=== PATIENT | male | born 1975 | race Caucasian/White ===

== ENCOUNTER 2022-11-29 10:05 | Outpatient (OUT) | payer OTHER, MEDICAID, SELFPAY ==
[2022-11-29 10:39] LABS: Basophils Percent Auto 0.5 % (0.2-2.0); Eosinophils Absolute Auto 0.4 10^3/uL (0.0-0.7); Eosinophils Percent Auto 4.8 % (0.9-7.0); Hematocrit 43.4 % (42.0-54.0); Hemoglobin 14.9 g/dL (14.0-18.0); Immature Granulocytes Abs Auto 0.03 10^3/uL (0.00-0.03); Immature Granulocytes Pct Auto 0.4 % (0.0-0.5); Lymphocytes Absolute Auto 2.3 10^3/uL (1.2-3.8); Lymphocytes Percent Auto 31.6 % (20.5-60.0); Mean Corpuscular HGB Conc 34.3 g/dL (29.9-35.2); Mean Corpuscular Volume 93.3 fL (80.0-94.0); Mean Platelet Volume 9.7 fL (9.5-13.5); Monocytes Absolute Auto 0.5 10^3/uL (0.3-0.8); Monocytes Percent Auto 7.3 % (1.7-12.0); Neutrophils Percent Auto 55.4 % (43.0-75.0); Platelet Count 184 10^3/uL (150-450); Red Blood Count 4.65 10^6/uL (4.70-6.10); Red Cell Distribution Width 12.2 % (11.0-15.0); White Blood Count 7.3 10^3/uL (4.0-11.0)
[2022-11-29 10:43] LABS: Estimated Average Glucose 100 mg/dL; Glycohemoglobin A1C 5.1 % (4.5-6.2)
[2022-11-29 10:49] LABS: Alanine Aminotransferase 43 U/L (16-63); Albumin Globulin Ratio 0.9; Albumin Level 3.3 g/dL (3.4-5.0); Alkaline Phosphatase 63 U/L (46-116); Aspartate Amino Transferase 30 U/L (15-37); Bilirubin Direct 0.1 mg/dL (0.0-0.2); Bilirubin Total 0.3 mg/dL (0.2-1.0); Globulin 3.7 g/dL
[2022-11-30 16:34] LABS: Thyroid Stimulating Hormone 2.369 uIU/mL (0.358-3.740)
[2022-11-30 16:38] LABS: Prostate Specific Antigen Scrn 0.41 ng/mL (<=4.00)
== END 2022-11-29 10:06 ==
LOC: LAB 10:09
PROVIDERS: PCP Family Medicine; Visit Provider Family Medicine
DX: Z00.00 Encounter for general adult medical examination without abnormal findings (principal); Z12.5 Encounter for screening for malignant neoplasm of prostate; E55.9 Vitamin D deficiency, unspecified
CPT/HCPCS: 36415; 80076; 82306; 83036; 84443; 85025; G0103

== ENCOUNTER 2024-07-06 07:18 | Outpatient (OUT) | payer OTHER, SELFPAY ==
[2024-07-06 09:23] LABS: Basophils Percent Auto 0.6 % (0.2-2.0); Eosinophils Absolute Auto 0.3 10^3/uL (0.0-0.7); Hematocrit 44.5 % (42.0-54.0); Immature Granulocytes Abs Auto 0.03 10^3/uL (0.00-0.03); Immature Granulocytes Pct Auto 0.4 % (0.0-0.5); Lymphocytes Absolute Auto 1.9 10^3/uL (1.2-3.8); Lymphocytes Percent Auto 28.1 % (20.5-60.0); Mean Corpuscular HGB Conc 33.7 g/dL (29.9-35.2); Mean Corpuscular Hemoglobin 32.2 pg (25.9-34.0); Mean Corpuscular Volume 95.5 fL (80.0-94.0); Mean Platelet Volume 9.8 fL (9.5-13.5); Monocytes Absolute Auto 0.6 10^3/uL (0.3-0.8); Monocytes Percent Auto 9.3 % (1.7-12.0); Neutrophils Absolute Auto 3.8 10^3/uL (1.4-6.5); Neutrophils Percent Auto 56.6 % (43.0-75.0); Platelet Count 206 10^3/uL (150-450); Red Blood Count 4.66 10^6/uL (4.70-6.10); Red Cell Distribution Width 11.9 % (11.0-15.0); White Blood Count 6.8 10^3/uL (4.0-11.0)
[2024-07-06 09:54] LABS: Estimated Average Glucose 100 mg/dL; Glycohemoglobin A1C 5.1 % (4.5-6.2)
[2024-07-06 10:13] LABS: Alanine Aminotransferase 35 U/L (16-63); Albumin Level 3.4 g/dL (3.4-5.0); Alkaline Phosphatase 60 U/L (46-116); Aspartate Amino Transferase 24 U/L (15-37); BUN Creatinine Ratio 17.9; Bilirubin Direct 0.1 mg/dL (0.0-0.2); Bilirubin Total 0.4 mg/dL (0.2-1.0); Calcium 8.3 mg/dL (8.5-10.1); Carbon Dioxide 27.1 mmol/L (21.0-32.0); Chloride 106 mmol/L (98-107); Chol HDL Ratio 3.1; Estimated GFR (African America >60 (>=60 mL/min/1.73m^2); Estimated GFR (Non-African Ame >60 (>=60 mL/min/1.73m^2); Globulin 3.5 g/dL; Glucose 103 mg/dL (74-106); HDL Cholesterol 45 mg/dL (40-60); Potassium 4.1 mmol/L (3.5-5.1); Sodium 143 mmol/L (136-145); Thyroid Stimulating Hormone 1.952 uIU/mL (0.358-3.740); Total Protein 6.9 g/dL (6.4-8.2); Triglycerides 129 mg/dL (<=150); VLDL CHOLESTEROL 25.8 mg/dL
[2024-07-06 13:42] LABS: Cholesterol 145 mg/dL (<=200)
== END 2024-07-06 07:19 | disposition home or self-care (01) ==
PROVIDERS: PCP Family Medicine; Visit Provider Family Medicine
DX: Z00.00 Encounter for general adult medical examination without abnormal findings (principal)
CPT/HCPCS: 36415; 80048; 80061; 80076; 83036; 84443; 85025; G0103

== ENCOUNTER 2024-07-15 07:58 | Outpatient (OUT) | payer OTHER, SELFPAY ==
--- NOTE | 2024-07-12 13:33 | V.VEINS.HP ---
Vital Signs 07/15/24 08:14 Height 5 ft 8 in Weight 133.81 kg BMI 44.9 BP 107/63 BP Location Right Brachial BP Position Supine BP Cuff Size Adult BP Source Automatic Cuff Respiration 16 Pulse 62 Pulse Source Monitor Pulse Oximetry (%) 98 Oxygen Delivery Method Room Air Varicose Veins Patient is a 49 year old male in this day as a referral from Dr. Rodriguez secondary to varicose vein disease most notably to left leg. Patient c/o bilateral leg pain and edema. 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 Patient does wear knee high compression stockings which he states has helped the symptoms. He states he's worn them for 6 months to approximately one year. Patient has a family history of varicose vein disease in both of his parents. Patient also has a family history of blood clots. Valentino Marroquin MD personally performed the services described in this documentation, as scribed by Donn Mendez RN in my presence and it is both accurate and complete. Donn Marroquin RN, am scribing for, and in the presence of, Dr. Valentino Manzo and in the presence of the patient. . thigh: bilateral (symptoms left leg > right leg), knee: bilateral, calf: bilateral, ankle: bilateral and correa: bilateral aching, burning, cramping, dull and tender 6 10 years Worsened in recent months: Yes standing analgesics, elevating extremities and compression stockings Reports muscle spasms of leg, fatigue, heaviness, limb pain and leg edema History of lower extremity trauma: No Superficial thrombophlebitis: No Family history of varicose veins: yes Has patient had previous lower extremity venous surgery: No Patient has previously received the following treatment(s) for lower extremity varicose veins: Reports none Does patient have a history of : not applicable Support hose used: Yes Problems walking or doing physical activity: Yes How does it affect you: often has to set in elevate legs at work due to pain Do you walk much: Yes Do you stand much: Yes Review of Systems ROS Narrative Valentino Marroquin MD personally performed the services described in this documentation, as scribed by Donn Mendez RN in my presence and it is both accurate and complete. Donn Marroquin RN, am scribing for, and in the presence of, Dr. Valentino Manzo and in the presence of the patient. Status of ROS 10 or more systems reviewed and unremarkable except as noted in history and below Cardiovascular Reports: edema Integumentary/Breast Reports: itching, skin tenderness and skin swelling Neurological Reports: weakness in extremities [facility] Medical History (Updated 07/15/24 @ 08:26 by Donn Mendez) Hernia, umbilical ?K42.9 - Umbilical hernia without obstruction or gangrene (ICD-10) Acute asthma ?J45.909 - Unspecified asthma, uncomplicated (ICD-10) Obesity ?E66.9 - Obesity, unspecified (ICD-10) Back pain ?M54.9 - Dorsalgia, unspecified (ICD-10) Varicose veins of bilateral lower extremities with pain ?I83.813 - Varicose veins of bilateral lower extremities with pain (ICD-10) Surgical History (Updated 07/15/24 @ 08:26 by Donn Mendez) H/O umbilical hernia repair ?Z98.890 - Other specified postprocedural states (ICD-10) ?Z87.19 - Personal history of other diseases of the digestive system (ICD-10) Social History (Updated 07/15/24 @ 08:27 by Donn Mendez) Within the past year, how often did you have a drink containing alcohol: 2-4 times a month Smoking status: Never smoker Non-prescribed substance use: denies use Meds Home Medications and Allergies Home Medications ?Medication ?Instructions ?Recorded ?Confirmed ?Type fexofenadine 60 mg tablet (Rocio 60 mg PO Q12H 07/15/24 07/15/24 History Allergy) Allergies Allergy/AdvReac Type Severity Reaction Status Date / Time No Known Drug Allergies Allergy Verified 07/15/24 08:27 Exam Narrative Exam Narrative: IValentino MD personally performed the services described in this documentation, as scribed by Donn Mendez RN in my presence and it is both accurate and complete. IDonn RN, am scribing for, and in the presence of, Dr. Valentino Manzo and in the presence of the patient. Constitutional Documenting provider has reviewed patient's vital signs: yes Common normals: oriented x3 Nutritional appearance: overweight Cardio Peripheral pulses: posterior tibial pulses present and dorsalis pedis pulses present Extremity Common normals: normal capillary refill General: edema Right lower extremity: lower leg Right lower leg: inspection and palpation Left lower extremity: lower leg Left lower leg: inspection and palpation Neuro Common normals: oriented x3 Results Imaging Venous US: Radiologist's impression: Bilateral leg reflux u/s reveals abnormally dilated and incompetent bilateral great and anterior accessory saphenous veins along with bilateral leg branch saphenous truncal tributary varicosities. Valentino Marroquin MD personally performed the services described in this documentation, as scribed by Donn Mendez RN in my presence and it is both accurate and complete. Donn Marroquin RN, am scribing for, and in the presence of, Dr. Valentino Manzo and in the presence of the patient. Assessment and Plan Assessment and Plan (1) Varicose veins of bilateral lower extremities with pain: Plan Patient is for patient to continue use of bilateral leg knee high compression stockings, rest, and elevation of bilateral feet and legs. Patient to return for EVLT of right GSV followed by left GSV followed by right AASV followed by left AASV. Once EVLTs are complete, move forward with bilateral leg microfoam chemical ablation branch saphenous varicosities. Valentino Marroquin MD personally performed the services described in this documentation, as scribed by Donn Mendez RN in my presence and it is both accurate and complete. Donn Marroquin RN, am scribing for, and in the presence of, Dr. Valentino Manzo and in the presence of the patient.
--- NOTE | 2024-07-12 13:38 | W.VEIN ---
Discharge Plan Discharge Disposition: Home, Self-Care Plan of Treatment: EVLTs of bilateral GSV and AASV followed by microfoam chemical ablation bilateral leg branch saphenous varicosities. Patient Instructions: Endovenous Ablation (DC) Print Language: Congolese Discharge Date/Time: 07/15/24 11:24
--- NOTE | 2024-07-15 08:02 | VEIN_ITS ---
Patient Name: JERMAIN ROD MR#: [id number] : 1975 Exam Date: 07/15/2024 Ordering Doctor: DR DIANA CONDE M.D. RADIOLOGY REPORT PROCEDURE: VC EXT VENOUS REFLUX MELVINA LMTD COMPARISON: None. INDICATIONS: I83.813 Bilateral painful varicose veins TECHNIQUE: Duplex imaging of the lower extremity to assess the deep and superficial venous system for the presence of deep or superficial venous incompetence and to document the location and severity of disease. The study includes evaluation of the great saphenous vein (GSV), anterior accessory saphenous vein (AASV) and small saphenous vein (SSV). Patient scanned in reverse Trendelenburg and standing. FINDINGS: RIGHT LOWER EXTREMITY: Saphenofemoral Junction Reflux: Yes 9.4mm 3.8 sec GSV: Diam (mm) Reflux/ Time (sec) Proximal Thigh 7.1 Yes 0.5 Mid Thigh 3.7 Yes 1.1 Distal Thigh 3.7 Yes 1.7 Prox Calf 7.7 Yes 4.0 Mid Calf 5.3 Yes 2.4 Saphenopopliteal Junction Reflux: 2.9mm No SSV: Proximal Calf 2.5 No Mid Calf 2.9 Yes 0.5 AASV: Proximal Thigh 6.4 Yes 3.0 Mid Thigh 10.1 Yes 0.9 Distal Thigh Thrombi: No acute or chronic thrombus. Compressibility: Normal. Flow: Severe deep venous reflux. Preforator: Distal medial lower leg 5.3mm with 1.6s reflux. Mid medial lower leg 9.5 mm with 2.5s reflux. Prox posterior calf 4.1 mm, 0.5s reflux. Tech Note: Incompetent varicose vein proximal anterior thigh lateral to AASV that arises from SFJ measures 24.1 mm with 3.6s reflux. Varicose vein mid medial lower leg measures 6.2 mm with 1.8s reflux. Varicose vein proximal medial lower leg 6.9 mm with 2.4s reflux. Varicose vein medial knee measures 8.9 mm with 4.7s reflux. LEFT LOWER EXTREMITY: Saphenofemoral Junction Reflux: Yes 9.1 mm 1.2 sec GSV: Diam (mm) Reflux/Time (sec) Proximal Thigh 8.3 Yes 1.2 Mid Thigh 4.1 Yes 0.6 Distal Thigh 4.6 Yes 3.8 Prox Calf 3.1 Yes 0.4 Mid Calf 3.0 Yes 1.5 Saphenopopliteal Junction Relux: 3.8 mm No SSV: Proximal Calf 3.2 No Mid Calf 3.0 No AASV: Proximal Thigh 7.9 Yes 2.5 Mid Thigh 4.7 Yes 4.5 Distal Thigh Thrombi: No deep venous thrombosis. Chronic thrombus in varicose vein mid/anterior thigh-lateral knee. Compressibility: Non-compressible segment of varicose veins. Flow: Severe deep venous reflux. Senior Java Ui Developer: Distal medial lower leg 5.4 mm with 4.7s reflux. Mid lateral lower leg 3.5 mm with 4.4s reflux. Tech Note: Incompetent varicose vein proximal lateral lower leg measures 5.5mm with 2.5s reflux. Varicose vein distal medial lower leg measures 5.4 mm with 3.0s reflux. Varicose vein proximal anterior thigh off of AASV measures 4.5 mm with 1.3s reflux. Varicose vein distal medial thigh measures 6.2mm with 3.9s reflux. Varicose vein proximal medial lower leg measures 4.3 mm with 4.6s reflux. CONCLUSION: 1. Abnormally dilated and incompetent bilateral great saphenous veins, bilateral anterior accessory saphenous veins, and a 24 mm 2nd accessory saphenous vein arising from the right saphenofemoral junction. 2. Multiple abnormally dilated incompetent morning nanny veins bilaterally. 3. Numerous abnormally dilated and incompetent branch saphenous varicosities bilaterally. Dictated by: Valentino Manzo M.D. on 07/15/2024 at 09:19 Approved by: Valentino Manzo M.D. on 07/15/2024 at 10:18
--- NOTE | 2024-07-15 08:02 | VEIN_ITS ---
Patient Name: JERMAIN ROD MR#: [id number] : 1975 Exam Date: 07/15/2024 Ordering Doctor: DR DIANA CONDE M.D. RADIOLOGY REPORT PROCEDURE: [facility] - OFFICE VISIT INITIAL COMPARISON: None. PROGRESS NOTES: [age] year old male who presents with a tad year history of bilateral lower extremity swelling, pain, dilated bulging veins, heaviness. The patient's left leg symptoms are worse than the right. There has been a progression of symptoms over time. This increases with prolonged leg dependency. The patient describes an improvement with rest and elevation. The patient denies any signs and symptoms to suggest arterial ischemia. The patient describes a family history : Varicose veins, blood clots. The patient has drinking and smoking history of : Occasional alcohol consumption; no tobacco use. Patient has a past medical history significant for asthma, obesity, varicose veins, hernia repair. The patient denies a history of deep venous thrombus or pulmonary embolus. See separate history and physical for medication list. No prior treatment for varicose or spider veins. 6-12 month use of compression stockings. After review of nurse notes, history and physical exam I discussed at length the pathophysiology of venous hypertension and possible treatments, therapies and strategies available. We discussed at length the importance of elevating the lower extremities above the level of the heart, increased physical activity and compression stocking use. Ultrasound venous reflux study performed today was discussed at length with the patient. The report demonstrates abnormally dilated and incompetent great saphenous and anterior accessory saphenous veins bilaterally. Abnormally dilated incompetent secondary accessory vein arising from the left saphenofemoral junction. PHYSICAL EXAM: The right leg demonstrates several prominent varicosities, no significant spider veins, no ulceration, moderate edema, no skin discoloration. The left leg demonstrates several prominent varicosities, no significant spider veins, no ulceration, moderate edema, no skin discoloration. Both thighs, legs and feet were symmetrically warm to the touch. Good posterior tibial and dorsalis pedis pulses were present bilaterally. VEIN/ Facility EST Comprehensive IMPRESSION: 1. Bilateral lower extremity venous insufficiency 2. Bilateral lower extremity varicose veins 3. Bilateral lower extremity subcutaneous edema 4. No flow significant arterial disease 5. CEAP: C3, EC, , OK PLAN: 1. Continued use of compression stockings 2. Elevated legs and increased physical activity symptomatic relief 3. Endovenous laser ablation of right great saphenous, left great saphenous, right anterior accessory saphenous, left anterior accessory saphenous, right secondary accessory saphenous vein arising from the saphenofemoral junction. 4. Microfoam chemical ablation of bilateral lower extremity incompetent branch saphenous varicosities. Nurse notes, history and physical were reviewed and confirmed, see attached forms. The nurse was present throughout the physical exam and consultation Dictated by: Valentino Manzo M.D. on 07/15/2024 at 13:11 Approved by: Valentino Manzo M.D. on 07/15/2024 at 13:20
[2024-07-15 08:14] VITALS: BP 107/63; PULSE 62; O2SAT 98; BMI 44.9
--- OUTSIDE RECORDS SUMMARY | 2024-07-15 08:20 | XMS_ITS | CCD ---
Author Organization [facility] Care Team Providers Care Dial Lathe Operator Name Role Phone DR MERVIN SANTIAGO Primary Care Unavailable PAMELA, DR MERVIN Henderson Admitting Unavailable PAMELA, DR MERVIN Henderson Attending Unavailable PAMELA, DR MERVIN Henderson Primary Care Unavailable PAMELA, DR MERVIN Henderson Admitting Unavailable PAMELA, DR MERVIN Henderson Attending Unavailable PAMELA, DR MERVIN Henderson Consulting Unavailable PAMELA, DR MERVIN Henderson Primary Care Unavailable PAMELA, DR MERVIN Henderson Admitting Unavailable PAMELA, DR MERVIN Henderson Attending Unavailable Mervin Santiago MD Primary Care Provider MERVIN SANTIAGO Attending Unavailable Medications Current Medications Medication Drug Class(es) Dates Sig (Normalized) Sig (Original) fexofenadine hydrochloride 180 mg oral tablet (4 sources) Histamine-1 Receptor Antagonist Start: 01-01-2024 take 1 tablet by mouth once daily fexofenadine (Rocio) 180 MG tablet Indications: Allergic rhinitis due to pollen TAKE 1 TABLET BY MOUTH DAILY 30 tablet 5 01/01/2024 Active furosemide 40 mg oral tablet (3 sources) Loop Diuretic Start: 07-02-2024 take 1 tablet by mouth once daily furosemide (Lasix) 40 MG tablet Indications: Edema of left lower leg Take 1 tablet (40 mg) by mouth Daily 30 tablet 5 07/02/2024 Active Problems Active Problems Problem Classification Problem Date Documented Date Episodic/Chronic Esophageal disorders (3 sources) Gastroesophageal reflux disease without esophagitis; Translations: [Gastro-esophageal reflux disease without esophagitis] Onset: 07-02-2024 07-02-2024 Chronic Other nutritional; endocrine; and metabolic disorders (5 sources) Severe obesity; Translations: [Class 3 severe obesity due to excess calories with serious comorbidity and body mass index (BMI) of 45.0 to 49.9 in adult ([facility])] Onset: 07-02-2024 07-02-2024 Chronic Other upper respiratory disease (3 sources) Allergic rhinitis due to pollen; Translations: [Allergic rhinitis due to pollen] Onset: 07-02-2024 07-02-2024 Chronic Residual codes; unclassified (4 sources) Obstructive sleep apnea (adult) (pediatric); Translations: [OBSTRUCTIVE SLEEP APNEA] Onset: 09-04-2021 Chronic Residual codes; unclassified (1 source) Idiopathic hypersomnia with long sleep time; Translations: [IDIO HYPERSOMNIA W/LONG SLEEP TIME] Onset: 09-08-2021 Chronic Residual codes; unclassified (3 sources) Obstructive sleep apnea syndrome; Translations: [Obstructive sleep apnea (adult) (pediatric)] Onset: 07-02-2024 07-02-2024 Chronic Residual codes; unclassified (7 sources) Edema of left lower leg; Translations: [Localized edema] Onset: 07-02-2024 07-02-2024 Episodic Spondylosis; intervertebral disc disorders; other back problems (3 sources) Degeneration of lumbar intervertebral disc; Translations: [DDD (degenerative disc disease), lumbar] Onset: 07-02-2024 07-02-2024 Chronic Unclassified (2 sources) CONTACT W/AND (SUSP) EXPOS COVID-19; Translations: [CONTACT W/AND (SUSP) EXPOS COVID-19] Onset: 02-11-2022 Varicose veins of lower extremity (7 sources) Pain co-occurrent and due to varicose veins of left leg; Translations: [Varicose veins of left lower extremity with pain] Onset: 07-02-2024 07-02-2024 Episodic Viral infection (1 source) COVID-19; Translations: [COVID-19] Onset: 02-11-2022 Past or Other Problems Problem Classification Problem Date Documented Da te Episodic/Chronic Unclassified (1 source) CONTACT W/AND (SUSP) EXPOS COVID-19; Translations: [CONTACT W/AND (SUSP) EXPOS COVID-19] Onset: 02-09-2022 Results Test Name Value Interpretation Reference Range Facility ALL CBC WITH AUTO DIFFon BASOPHILS ABSOLUTE AUTO 0 [facility] Basophils/100 WBC (Bld) 0.6 % 0.2 - 2.0 % [facility] Eosinophils/100 WBC (Bld) 5 % 0.9 - 7.0 % [facility] Erythrocyte distribution width (RBC) [Ratio] 11.9 % 11.0 - 15.0 % [facility] Hematocrit (Bld) [Volume fraction] 44.5 % 42.0 - 54.0 % [facility] Hemoglobin (Bld) [Mass/Vol] 15 g/dL 14.0 - 18.0 g/dL [facility] IMMATURE GRANULOCYTES ABS AUTO 0.03 [facility] Immature granulocytes/100 WBC (Bld) 0.4 % 0.0 - 0.5 % [facility] Interpretation and review of laboratory results Abnormal [facility] LYMPHOCYTES ABSOLUTE AUTO 1.9 [facility] Lymphocytes/100 WBC (Bld) 28.1 % 20.5 - 60.0 % [facility] MCH (RBC) [Entitic mass] 32.2 pg 25.9 - 34.0 pg [facility] MCHC (RBC) [Mass/Vol] 33.7 g/dL 29.9 - 35.2 g/dL [facility] MCV (RBC) [Entitic vol] 95.5 fL High 80.0 - 94.0 fL [facility] MONOCYTES ABSOLUTE AUTO 0.6 [facility] Monocytes/100 WBC (Bld) 9.3 % 1.7 - 12.0 % [facility] NEUTROPHILS ABSOLUTE AUTO 3.8 [facility] Neutrophils/100 WBC (Bld) 56.6 % 43.0 - 75.0 % [facility] Platelet mean volume (Bld) [Entitic vol] 9.8 fL 9.5 - 13.5 fL [facility] TB EO # 0.3 [facility] PLT 206 [facility] RBC 4.66 Low [facility] WBC 6.8 [facility] Covid-19 PCR (CVDTBH)on 01-18 SARS-CoV-2 (COVID-19) RNA BALTAZAR+probe Ql (Unsp spec) Detected Critically abnormal NOT DETECTED [facility] Comment on above: Result Comment: This test is not yet approved or cleared by the [place] FDA. When there are no FDA-approved or cleared tests available, and other criteria are met, FDA can make tests available under an emergency access mechanism called an Emergency Use Authorization (EUA). The EUA for this test is supported by the [employer] Manager of Health and Human Service's (HHS's) declaration that circumstances exist to justify the emergency use of in vitro diagnostics for the detection and/or diagnosis of the virus that causes COVID-19. This EUA will remain in effect (meaning this test can be used) for the duration of the COVID-19 declaration justifying emergency of IVDs, unless it is terminated or revoked by FDA (after which the test may no longer be used). Performed By: #### [facility] #### [facility] [address] [place] [address] Dr. Abraham Buckner Coding Summary.on 12-16-2020 Coding Summary. CD:[id number] Gh 0bWw+PGhlYWQ+CS2FFCHdJ 66paYJynP3BI8mFPN2ZGXZ AYPEAPG2HDR0qvPG3KMpkT 2VybiAv IarefZFeBY83EHw2JFN4uO pdBTpsyP4mpSZxG7r6DrPv SB49vX35HBdhWCXnPsI3Qo ZpbjsgbWFy O4fvBcXrpOOdRky+PHRhYm xlIHdpZHRoPScxMDAlJyBz dGnpOT6tXq1jXAWvIPRebI xhcHNlOiBj i1sqKWUdRSekIT3ilCwrA4 XuyAZ2LWGvm7r1He99oGY+ HCGjFIY2mYonTGqox943Jx Skd1ayWCB0 iPSxOSzdQRD4T41qo3N4GU RaYKExPOM1bWY5eM1zdIbs eiugP6LfeHDvZtF5FNY9mS BluN5rwCdy hydykW8sXyn+P86OWE8QWA MHRC3JBbh1U7OnSdskdBL+ ZY57RUXmQK35dAEsqUUcg1 deyTx8MvZx MHLlJEL2oWpcULesq3WiUE VzP03bhYWrf0L8GQLptAgn wKAoZbAjgHW5hO8qJArivl zlm4prygff Niept5esay42dY86Y28nPB piFIWnDNO9WZEkSUGgxTxw pf1bbT2qUt5+XQqnx0wnz4 wnhVv2YiLt PGYdjtSxxIjtWIU2g9MdPl 05G6FkxBkob0AmArm7bq94 bZTbh2M3iDS9WChmNHXljY 4lMDmjXxX4 WVAiGeVnlZ70rEDnUPquPt 4mqGdztXzjDC4rPJJpqwfv QFOlpZ0zRLMffTAifDqpAL 4wNTBpbjtm f407PqRmNDB7XDStqORoS7 CysO3mAqHbQVQuRZOoD7St gPOzLHtyV185SLzwUvV0TH GugyLhT0Me VWUacAfrIjY9w7Y9Ra2Lc6 AfdayzQFA6JPqaQKT6WjEg VfLqSjT6S7NcFtg2SIBweJ ovWO7bB8Nw UCMjphkfglgszLL8MGXbTE HpwN28sCKsUBxhWx8uo5Q9 j195JETbCEQiwX86Du3adE ogMTBwdCBU vA8ikqmyl1cftuunYhSlDH IrMZl4SQa0JKTwjFprElFd FZP9UcJ8EWO8vUYqlA2qgE titecxaT9u Oyc+T96beC2yICK5OBV3au lnGGAyhfBzOH00CH41F4Uc PjwvdGFibGU+PGRpdiBzdH ntFX9uJlVy e7bqj3ZeNJjdM2OxTIGhVR tuXvu4VHAuLGM5gNU5bW3s SXCbLUxio8R9cUU7P7Zkzx Bsik1fr1jn UBGvHXviW53veEDxd8T6GJ BzvQH7IGMqmSloBhNwxM96 Oyc+EHLbxZjth2KgFktrn5 wds3kuzYq7 CaObYUKfunGdeOjrOJM5f5 BsEb17H55yBHszCNWvFHEf DCQzDEDdyRenvs0mwD5eJo 8+PGNvbCB3 aDG5pK6nLFUgMhQ8AElnW4 23ZmGgeKGoIbfak4jcr1pv gIe8NgJdDOSoxsPudJqlJE W1d2GwIs55 L22yXLvpWUZiVVGhIEMmAI DozPdpei6txV7cDj1+PC9j t5fxsg39bR71zPI+PHRkIH V8vWolFZba YSFrbA4tGWfrYfU0UZMiTt FxwY39tSVgNKivAb9zvIwu mPiwSS1zFLByigetl572Jc Cvj8yjEKAj bJFnCTmePMH0G58zt1Y2XR DcUIJjPHD9mPF4tE3ndXmb bjogbGVmdDsgdmVydGljYW tqXUcaY214 IHRvcDsnPlBhdGllbnQgTm DtPVg9X1LmXuv3UTAaqTpt HU3yrZJuHMwsGx1epLvooL ufCA5cTRYq tzxuf558ApPfc4huBCLwxP HrRMtiAPG2Z26nu1Z3TQHf WLBmLPP5gHI0bO3wkGlxoe ogbGVmdDsg pxCfgJgcECtaCWwvR805IN RvcDsnPkJpcnRoIERhdGU6 HW98BM92yZBqp5D9pFK4A5 BhZGRpbmct rlhdeSL3UVRkBJBnwU27Rk 3zjTjrNo4bCQWzKZW8MNOa kWVwD9ZwlW6rUpWvYMCfSD SvV9AyuGCl WCmrD953CFtnHwB7VVAgxj NvL6DzFOJxrYyzPcY1o1B6 Ai4KN5Z4JO97KO14rRKvh8 T1oNX6M8Kg JYRtqoabhbiqmMG5VKLzYU NnyJ25Up3hyKvuUz3jWZHr GZY2ZIZemQMvC8XezM9tZi AjMDAwMDAw J2MbaQEeWEgoC828ONrdRk L9CVNyigYtT3NxVIKniWqz LiP7k9R1Xf4EHKj5MW41OX 59sCWgs5X4 hIC7C4IvOSEnxhconhqtrB P9ZXAeGDQtfT81An4qtHgv Au0uALGbMCR2TPZinLJyP5 XolW9zGnNi JRJgKJUmD4ZbvKGwAOcgK4 91MAsbHsX4XDSideGjM4Ae DGOzkWttHeT3f1H1Lv3YVU BzGI50QUE6 gWP1LR05KA93L5HjHbymiO FibGU+PHRhYmxlIHdpZHRo CNwqZQHcYeUifZupMO6uBh 9yZGVyLWNv mMbcgIGgEvEfh5jwMIAmZU qdZB9vaDocA0BenQU9DMLl m0w7Wm06R54qS4BmnIZ+PG VhmBV1oOQ1 vU1aFuBxVvY4WWolF735Rx RjbHGhHratg0vmi5trrLk7 FhW4YCTgzjLchPvcZPI6k4 ZqXd69I35b IHdpZHRoPSIxNSUiIHZhbG apde9vgL6iOr5+PGNvbCB3 tON5rX3cWaMiQwR2PGvgJ1 49InRvcCIv Kkvcr7syd1pvdXj9MdWoAB CulwNwlYdgNQP8e8SvWq16 R6ZldMixr4PhBcg8zk06jI Exu9H6vXI8 U8MxVCZdhizzvGGtkQktHP 9cJVUvkieaEWZhcM5cJMTj U6s2KsCpUoZ8ZRomO6Xoew G5RCOmkAAu NDidPEZ8V00fc1B6FFMzAQ IiLSI5zJZ9eH4yvCufkjwf bGVmdDsgdmVydGljYWwtYW spP518AHBs xZxxXBXnoF1zLTGofLYypJ mjGM1eQRHmcomxFuGBT3Vd DGzWL17TUBM8A1NkTws2HP KxvCnfIC6w dOHdLLkhYy5pwIzegZndVA 3lLORurxibCEQxjC3tHLVy hOSfhYjiKX7gLHDilgaop0 81TyAkEOS1 MTHvuROsH4WwnN9pNiEcIY EsUSZpP5NhjZZfAPreL463 MZslOzK7ONMbxxEcQ6ZnHB FsaWduOiB0 q6Y2Ak8cWY7aDf4tNWs2XT 71QG36iHDcp1O1bOL0Q2Fv CPTmfdxvrrnvnTG3XWZsBE ApfO73kFSv UWxtQq9en7G1i362XURhXX AcvJ03Rb6gnZqvWAXpdWAV fQ6nwnvjw6pnfzdcUfTvCK QiXDj4DZa3 ZZRumIduFxSqKAZ2IwK4YL Y1hZGitY4zbTfezlmarI8v Oyc+BYVcRLSulgC4F2DaTq q9WGWvbHnc SL0veQBoJBrmHd4uaApweV xmMN1hLQAomefzXHQywA3y XGDaaPPxeNntOT7eBEFael fpw508KlXa MKE1JLHtyINoJ3VxuW6wGa RlYIPjKJFzB9NhtLVtGPvd T936CEbwIcK1QCXupmJzC3 FsLWFsaWdu EsA9m3B7Rv6HDYvqPZ38JS 38rYPhc9Q3aLB2E1LnTLFq xakcwmumuBO4GORjGIAzbS 47cGFkZGlu Zp5mj5B3y318JQOoMEHmvO 40Bq2ynQfrUZGsaJPXfM1z ymjtf7jwnxupThZfDIYpJJ d6DAz1AXMi mQxrHmPsETJ9PcS2FGD3cG GxfX9ezFnxlumxkZ0pYgk+ XFRhtbCHFQ3iA8FaKT98BD 98PQ62Q0De PjwvdGFibGU+PHRhYmxlIH dpZHRoPScxMDAlJyBzdHls QW1rGb9dGEYvTCMztXditF YlBsEmo0mp RVXxUOxkVP6isHurL6UqmI B0HEDpc4f0Kf86N25lT9Zs dXA+ADNqiVN7dKM6mB5dWi IxQhN1AEuo G023BzHefPDcLhocr0vfr2 fqdZb8GgGqAIArtsIlqTfj ZCD0q1NlOv22Q42bDQdrIV RoPSIyMCUi LNNuzGyrnu5riM0zTz3+PG OsfQZ7ySP7rV7dMqEeXuS3 RMpuQ121NrMngGAfHkvxY4 8fF3ZmfQB+ PLIcPsw6WECnvAgcMN2wtA XzGFczZo2sSJW8GlPcEeAi ITkyM8WxTXHobkyqdehtxT L9NINsNWDd yW84Id2xeXudHv7dBSSaGT W0SIBjdYWjT8TvhP0nLuEb VDGhLNIsZ6QxhHLeGYzzR5 32DYszSmY6 LAYpyjBnF0QhKCPxnZpeCq B8p2B9Sc5TrErnqDJmSI6w XaPwQQk1U4TrIva7UTHzxW dkNA1crFMl UQwyUd3wnEzbdRlnNN4bHJ Vztbcte924SqZvl4krWTHm nXKdYCxkHSY0D17vb5S2IP MwMDAwMDA7 vHI5mL1xiIqscsasuAFosB bvsvXplTdmPZdeIRzfU329 JUYmnTdvCsGGOuo3O6PoSu f9NXPlwIpg SB9goGMiVIswZs7joCpxhP ebDL3fJSZttcupy227JfEs h0xmEFRlhFKySVlpURA6T6 5mf2P0QDSq YDAeCJD2yPH7uP9imOlwri ogbGVmdDsgdmVydGljYWwt TWebB102VYObsWnqIx3HYg p3A3EvFio0 OSQtdHlwGV1soCVuJLsiBs 6edOzlfTofAY6rSDSnmkhi f030VrSbb6cyNZGgkFPfCR lgPIC4V59q a5R7XFIqPAGbGYL0mSN9xX 1hbGlnbjogbGVmdDsgdmVy bKkfGThvNZalF560ZYMkhA snPlBheWVy OjwvdGQ+JJ92uz04F0TmKl pmDcd9EECeCLT0aYO8aV4m UEEjJNbsp9B6yZC8R0Vwxu Cljv0pu8vz YXBz (more content not included)... Normal [facility] Consultation Noteon 12-16-19 Consultation Note HOSPITAL REGULATIONS : ALL Positive Important Negative Findings Shall Be Recorded. Date of 12/08/2020 Consultation: Attending Mervin Santiago MD Physician: Consulting Joseph Stephen M.D. Physician: CHIEF COMPLAINT: Low back pain. HISTORY: A 45 year old gentleman, history of lumbar spondylosis, sacroiliitis and chronic pain following up from right L4-5 and L5-S1 facet blocks with steroid on 11/03/20 after noting that he had edema at the face joints on magnetic resonance imaging. The patient reports 90-95% improvement of his pain. No apparent complications from the procedure. He rates his pain anywhere from a 0-2/10 on the visual analog scale. He has been much more active as a result of the relief of his pain. He feels some stiffness in the area. He has questions about his condition and prognosis. Past medical history, family history, surgical history, social history, medication list, allergies and complete review of systems were obtained and reviewed. Pertinent findings are noted in the history of present illness. PHYSICAL EXAMINATION: Constitutional: No acute distress. Well nourished, well developed. Musculoskeletal: Patient arises easily from a seated position. Injection sites are healed. Minimal pain with lumbar facet loading on the right. Sacroiliac joints are non-tender to palpation. Neurologic: 5/5 strength distal lower extremities. Normal gait. ASSESSMENT/PLAN: A 45 year old gentleman with a history of lumbar spondylosis much improved following the right-sided lower lumbar facet blocks with steroid. I encouraged the patient to work on weight loss, core strengthening and cardiovascular exercise. Encouraged for him to continue his home exercise program. I asked him to follow up on an as needed basis. I educated the patient on his condition and prognosis. The patient agrees with plan of care. Joseph Stephen M.D. lkr Dictated: 12/08/2020 #[id number] Typed: 12/14/2020 #[id number] cc: Joseph Stephen M.D. Mervin Santiago MD [facility] Comment on above: Result Comment: Elec tronically Signed By: Zafar ADAME, Joseph Rodriguez\.br\Date and Time Signed: 12/15/20 13:59 EDT Patient Correspondenceon Patient Correspondence [id number]#1.0 0CD:[address] [facility] Patient History Officeon Patient History Office [id number]#1.0 0CD:[address] [facility] Consent for Treatmenton 11-18 Consent for Treatment [id number]#1. 00CD:[address] [facility] Office/Clinic Note-Physician on 12-08-2020 Office/Clinic Note-Physician [id number]#1. 00CD:[address] [facility] Coding Summary.on 11-11-2020 Coding Summary. CD:[id number] Gh 0bWw+PGhlYWQ+EU8CSGHsI 54nkQRzcA0NK2xWGZ5RQIE SQZDTUK8TAJ2ltPF4PRzlS 2VybiAv KgllcCWxOP85ZYc4LLJ6sX meDJszzN2tfXJcR7j1KmCp LB92uO90RNvcZQXwGyK6Dw ZpbjsgbWFy C0kaMsYvyIPtXbh+PHRhYm xlIHdpZHRoPScxMDAlJyBz dQjcXL9dCw2rTSRoCHFknW xhcHNlOiBj p9sjLUCkJOklLG7qgCabQ8 ViuBJ6IKAcv4p2Ax46lWU+ CJIwTQE3kDjtSLdos958En Vbz7swGTH7 fZFdIKwrKTD0G59ji1H2VO QqJHCeBZS0qEE8rO6huOlt jesmS7YnwCAvSeR6JKR3lX NhiR7prWjl tjnvwR9cWlu+H15RUO5ORA OAIF8SFon6R2AsQoujxFC+ PV92ISGwVN18sNJyqRBto9 tbuWo2IaPs AWQpSYY3tBnfPWfyu5SoXJ KhM32dzAKvy7X8LQAhsCgg zTIiYzKaiXN4vS7lXMowev izw1mwkhvg Dximb9dzqp97yY15Y01iHW xiHPYaUQA6WSDmCYXcyYdo lp6fzP8dKl2+QUqtn3bmo6 bbdMc4VjCn DMUoqwZxdDqxQLI0n7NmLg 55O4IlrGhkt7DqXhi4sy79 xLJpx5O3gIW5HAsfQUDltC 2uUWssEbE3 GDRlDcGbxD59qHQmYNooNz 2epKlyvTknQV0gOVVkmtru UDUvoK0kVMDinUQhpDdrDF 4wNTBpbjtm r870PlFeCTS0UVLgzJMeN2 KkwA9fBtGhIKHeNCJdY9Th eMXeCEsyV944CTfxScD8MV GlftBjK6Op ZBWkzLlkVyX3w9M3Ex3Eq9 FitwurWKD8EPuwQMO7AlJ0 ViPrIsA5M3LhNkz5RQNhoI ctMT6jR2At LVIraowtssmelSC2AIMoIA WreA15dFYmFTrbUk6gp7N4 i900CRKaYBOhwZ89Iy8vvX ogMTBwdCBU wW9wjpqgy2zmaevfImDhKB DxPZy5DUr6UFHcyKfgGsLr XEC5HnZ8DDR7oVUljH7naU dqfjbisR4a Oyc+W37hfL5pLYR2ONM4ti twGUYiciMaVW95IY20W2Jz PjwvdGFibGU+PGRpdiBzdH saGP6vLzYb h2fxl2LqRGfuS6PcSECfCV uxIiu4AMZnRYS2bNO3uY3h QFJtHVupd1O8kJD0C3Jokp Intz6vt5zt LUMhJWfjE01cnDGla4V7BF KdyME8QIGfaXeqEbVueB28 Oyc+FIQwuVwyf7MiCkdhd3 ivs2mszSk3 MbVaXYZaleRwsDsbLFT7q6 CtIq98U85rPIhkUVUpVGHo UUSqAWJjeHholx0hkZ4fQs 8+PGNvbCB3 sKE2lC9dKWFtAuD0IQrpT7 45RnLkjNLtRmcgw3qth6df rUm6JeWvZACsfzShhAelSM S6k3QjLj35 P08rPGglKAApOESoSOTjTU UlkNvecx1utD0eMa5+PC9j v5pzxx59oM59vWD+PHRkIH K2iUakNKmy OABmzU5iFKvyVlJ7CTQoLs XybZ29iRHhNRprMu2ccGum fKowBZ2sDOGpamrww191Fb Wmo8yxQXKn fYBhLYtwEYV2L76zb0U2ST TvMXTrQGA5qUD2pT7cxChv bjogbGVmdDsgdmVydGljYW pyGQxyW772 IHRvcDsnPlBhdGllbnQgTm TfBVu3C0HhJuq4NOIakItn VY7ydAVpIOhcRz3irDiiqP hjSQ8uYMSb hoauq771UpZus0ozPSRmjA GfQNbnIKB2U11vr1C5VMGi SOYfXKH7iMP9wV9lcStkmc ogbGVmdDsg uiKtjDewZCarEUnmT028WH RvcDsnPkJpcnRoIERhdGU6 UB10GK21oHUgd4Y9sXM0N0 BhZGRpbmct wmhngUV2LMTnKFUwmV96Yt 3pyZpdGw7lPXSxMAD8VFBz lJBeT5LetI5hShXwYPUnIB CkU4KypPTn JFbyZ140WLgmKhT3RWPloy XbL7ObNDMhiWmkFvL7u9E5 Xa7CC0C0VG33HW71iLPxo5 T0kRS7A9Mf QXUajaimpcdtoML6NGBnZQ FteU36Rw2frCxtKp8zAJSd WQN6CTYszXHsP0HmaP6cVz AjMDAwMDAw A9QqdDTbQIrkZ641GDlmBq W8EPJgsiZwK0JqBQIhdRnc MtO1j7Z3Wp6QIJx3QS67MX 94eLUzn0T5 hPH7E2FzMMSpdkmjqnzoyN B8EZTmVCOqoJ04Rq0bvYfw Es1mHAPdXFK6FHCpzOGcW5 KljL8xJfAa BGChIBWdD2QzkVClGEfdH0 34KYjnInY0IXJbgnUxX6Pt YKOtiUayTaN0m2S3Ek9SRR LlGC10MKU0 pZA5QQ41VO63U1VsNkmokS FibGU+PHRhYmxlIHdpZHRo DYuuGKGoUoTydDcsDT5xGz 9yZGVyLWNv uRbbdVMqFbNge2zeZYYaWB yfBO7giGvyV3AqbYS6TTAk b1i8Aa77R08lQ7RelVA+PG RfuOO6fVY6 jK3cYyNdYgQ2ZNubB697Vy LgvTYoZsrsh8glt1lccWl2 MoD1TLBxckUkmKjxJYS5a7 AgCf10F19u IHdpZHRoPSIxNSUiIHZhbG mijx6mwS0zNg4+PGNvbCB3 wUO1kE3wMaCiTtE1KCxgG1 49InRvcCIv Itdat3rpd0rabRi0UbDzKG FukyXrvOweZHN4w9OvQc73 Q7LikWurc1DuQqk9sm54tU Nwr6M8cSZ8 F3NgLBEwdocoaTHvmIfmAK 2oWFBzfxqrEAVhxP6nEOTe X2t1OaNeHfO7BMyuP0Ianr A2OMJfgPJx RLauGBB9A16xi1A5WAOdNC LoBOH5jWL7tB3phLsfncou bGVmdDsgdmVydGljYWwtYW ozG294GBUs wNkiOXMnbC7pSWRtgYHhnF uxGE9fXZAbrmbtNhJIV3Sx TQcRE72TCWN9I5OaQgl4GO VtzTbbDO2o fIPjCGvtRh0ndOlkwImvCR 8kVIEhdgutITFkhP8xMPUn iMFnyGkzLU6fNOIyvmrza7 22KrViTAS5 MPKpdDReP7DyhM7sRfKbZA CwVXPoT4DfrHMzWAufM873 NNrcQgO0XBNrvoCmL6OnTS FsaWduOiB0 o3O2Nu5tIZ8fDq1vBMd3LD 98BU78vFSls9V7yDT2G4Ii PWNsqnxdcykbjJE3YXSrHZ OzpR69uAAu NDtrPc1hp4O8k865UAQvPF SbtD80Zg6ozHhrXWYvxBIA zS7vwhsxe8iqkrrnTvRbMU TeFVj7QZt4 ZDWwmLijPfIzHTY7UwU0OP O5oKJdiG7adWkwosmhvW8d Oyc+SNJoURLucpT0P9ExOu u7YNKbdSny UR0ajJFqQDanOq1vmHzayR bgIV1hQHMkltwsYKTwzV9x ZDZxsMEzbJycMF6rIOCtod pkv877MzHq KVM5OBHesNOsS8KbbJ2nEc IxXNYvQPMkY2BnqAYvLCeo H999YYxtRmI2TURxzaEiI9 FsLWFsaWdu YfJ4d7V1Ai9KHBgwOW73ZS 26qIFev2Y6nWV5O6BkBJMf djbqjedkeRQ6MDIpSPFuvD 47cGFkZGlu Mn9hq3A4k215IUHwDAZysO 63Ai7bvNpbDLMuaEXIgZ1w ydfrl4bkyllcAeHaIZMqRG f5XUr7QRJq vGtiPoWdWGS8QxO2KQH7aL RgtZ0qtCbutkvewQ1cVyr+ SXCtdxTUTZ6nX4AeAV02YO 26ZV85O4Ld PjwvdGFibGU+PHRhYmxlIH dpZHRoPScxMDAlJyBzdHls LX7jKs0jJYApZFYzbEmupM AvKiWsg1dp WACeTMdmSG4hwCwtX6OiyD Z0GTOvh0r4Gi98N51xI8Xy dXA+TJStcIP0dNW1fE9sYw HpWzU0ZCxm H520UjPpvEZqKnkge0epy3 mozHe3FvQtRFCytmJrbAav EXE6m5HbBa67M82lCRazVB RoPSIyMCUi CDSzwEwaei6diJ0lCp4+PG GmtUF7cXD3eQ0sXyYrBaS3 VPyoB855YjJbbBEfYuuoS6 9mV1JubFC+ FXHxTne6LFAqvYvzDW2udS VtLNrkSb2hEKK2OkNbEjKi EUdhC7YvPPJggkdfqceczG Y6VYDrMZQv zY88At9yzAkkYd4aPUGvRD D9YCVfyECuD5HcfH4tVfIa AWOgDGMdG0JdgMNyCBtzF0 74QVmgCdM5 FYDoxrBqN3UyFJClsCbeCu X4m6M5Op8VaVdiaBVoNN2r CwGzKOj8T4IyHss6QTRobU pxBS0auOZm DWglSl3elEyoaBhrNA2xFA Ijxzfhl618JbKkp4pdNSNl iTMhVCkqXUJ3C03bj5K2RC MwMDAwMDA7 pAE5eO7txTcnljoujMVqfV vadsHjrBaxFArzNNroO959 UWQmdRlmSvMUFzk2N9ChMx v2KXFalAau UI7lhHZgZVvmVp3soVxqnM rzRD8nWKLetdlpj606HiSr v5skSPDylJDmCLbxFSI7C2 6eg0G7SHBn MSUfTGK8oCM8uF8axCsloz ogbGVmdDsgdmVydGljYWwt WKrvE128MIBxaFogMz3AVe k4Y6FdQgu5 HVWqfMvcUJ5lnZSoXPrcIg 8rrBwvxGpgLQ6oGVEladxi u948ZwPoz6szPUEtzSIvRW klQDA2B14q p2M1JWMrKOEqDIK4cMH0bV 1hbGlnbjogbGVmdDsgdmVy iTzaHInuROopA364GIOyaC snPlBheWVy OjwvdGQ+VC78gu67I9FeHy iwCxf6CJJbCTS3oGP3dM6c DZHoADcxu0U9oMJ3Y2Azzl Xqok4lm7yw YXBz (more content not included)... Normal [facility] Consent for Procedure/Surger yon 11-03-2020 Consent for Procedure/Surgery [id number]#1. 00CD:[address] [facility] Consent for Treatmenton 10-17 Consent for Treatment [id number]#1. 00CD:[address] [facility] Discharge Instructionson Discharge Instructions [id number]#1. 00CD:[address] [facility] IntraOperative Documentson 0 11-03-2020 IntraOperative Documents [id number]#1. 00CD:[address] [facility] Main OR Intraoperative Recor don 11-03-2020 Main OR Intraoperative Record IntraOp Document Type FTPM Summary Primary Physician: Joseph Stephen MD Finalized Date/Time: 11/03/20 14:46:15 Pt. Name: CASE, NAS Bowman /Sex: 1975 Male Med Rec #: [id number] Physician: Joseph Stephen MD Financial #: [id number] Pt. Type: P Room/Bed: / Admit/Disch: 11/03/20 14:23:43 - Institution: Case Times FTPM Entry 1 Patient Times In Room 11/03/20 14:39:00 Out Room 11/03/20 14:47:00 Procedure Times Start 11/03/20 14:42:00 Stop 11/03/20 14:45:00 Anesthesia Times Last Modified By: Rupa Thompson RN 11/03/20 14:46:07 Case Attendance FTPM Entry 1 Entry 2 Entry 3 Case Attendee Zafar ADAME, Joseph Gorman RN, Rupa Mott RN Role Performed Surgeon - Primary Rural Electrification Engineer - Relief Rural Electrification Engineer - Primary Time In 11/03/20 14:39:00 11/03/20 14:39:00 11/03/20 14:39:00 Time Out 11/03/20 14:47:00 11/03/20 14:47:00 11/03/20 14:47:00 Procedure LUMBAR FACET LUMBAR FACET LUMBAR FACET INJECTION(Right) INJECTION(Right) INJECTION(Right) Comments orient Last Modified By: Rupa Thompson RN 11/03/20 Rupa Thompson RN 11/03/20 Rupa Thompson RN 11/03/20 14:46:08 14:46:08 14:46:08 Entry 4 Entry 5 Case Attendee Eliud Bowman, Jim Dumont RN, Joseph Florentino Role Performed Kilnman Scrub - Primary Time In 11/03/20 14:39:00 11/03/20 14:39:00 Time Out 11/03/20 14:47:00 11/03/20 14:47:00 Procedure LUMBAR FACET LUMBAR FACET INJECTION(Right) INJECTION(Right) Comments Last Modified By: Rupa Thompson RN 11/03/20 Rupa Thompson RN 11/03/20 14:46:08 14:46:08 Perioperative Protocols FTPM Pre-Care Text: Implements protective measures prior to operative or invasive procedure, confirms identity before the operative or invasive procedure, verifies operative procedure, surgical site, and laterality Entry 1 Procedure(s) LUMBAR FACET Patient Identity Birthday, ID Band INJECTION(Right) Verified (select at Check, Patient least 2): Participation Consents / H and P HandP, Surgery/Procedure Operative Site Present Verified Consent Marking Verified Surgical Site Yes Laterality Verified Yes Verified Procedure Verified Yes Correct Patient Yes Position Verified Availability Equipment, Medication, Prep Dry Yes Verified (If X-ray Applicable) PreOp Antibiotic No Time Out Jay SAUCEDO, Rupa, Given Participants Tim SAUCEDO, Joseph Florentino, Zafar ADAME, Joseph Rodriguez, Edilma Gorman RN, Eliud Bowman, Jim Guerrero Time Out Complete 11/03/20 14:40:00 Outcomes Met? Yes Last Modified By: Rupa Thompson RN 11/03/20 14:40:08 Post-Care Text: The patient is free from signs and symptoms of injury caused by extraneous objects Allergy Information FTPM Pre-Care Text: Verifies allergies Entry 1 Allergies Reviewed? Yes Allergies Reviewed Self/Patient With Outcomes Met? Yes Last Modified By: Edilma Gorman RN 11/03/20 14:29:37 Post-Care Text: The patient received appropriate medication(s) safely administered during the perioperative period Surgical Procedures FTPM Entry 1 Procedure Description Procedure LUMBAR FACET INJECTION Modifiers Right Surgeon Description L4/5, L5/S1 FACET INJ W/STEROID Primary Procedure Yes Primary Surgeon Joseph Stephen MD Start 11/03/20 14:42:00 Stop 11/03/20 14:45:00 Anesthesia Type None Surgical Service Pain Management Wound Class 1 - Clean Last Modified By: Rupa Thompson RN 11/03/20 14:46:11 General Case Data FTPM Pre-Care Text: Classifies surgical wound, implements aseptic technique, initiates traffic control Entry 1 Case Information OR Pain Proc Room Case Level Level 2 Wound Class 1 - Clean Specialty Pain Management Preop Diagnosis M47.816 Postop Same As Preop Yes Postop Diagnosis M47.816 Outcomes Met? Yes Last Modified By: Edilma Gorman RN 11/03/20 14:29:46 Post-Care Text: The patient is free from signs and symptoms of infection Skin Assessment (Pre Procedure) FTPM Pre-Care Text: Implements protective measures to prevent skin/ tissue injury due to thermal or mechanical sources Evaluates for signs and symptoms of physical injury to skin and tissue Entry 1 Skin Integrity Intact, [place], Warm, and Skin Abnormality No Dry Outcomes Met? Yes Last Modified By: Edilma Gorman RN 11/03/20 14:29:55 Post-Care Text: The patient is free from signs and symptoms of injury caused by extraneous objects Patient Positioning FTPM Pre-Care Text: Identifies physical alterations that require additional precautions for procedure-specific positioning, verifies presence of prosthetics or corrective devices, positions the patient, evaluates the patient for signs and symptoms of injury as a result of positioning Entry 1 Procedure LUMBAR FACET Body Position Prone INJECTION(Right) Feet Uncrossed? Yes Left Arm Position Resting at Side Right Arm Position Resting at Side Left Leg Position Extended Right Leg Position Extended Positioning Device Pillow Under Head Large, Safety Strap, Pillow Large Under Knees Press Poi (more content not included)... Normal [facility] Main OR Preoperative Recordo n 11-03-2020 Main OR Preoperative Record Holding Area Document Type FTPM Summary Primary Physician: Joseph Stephen MD Finalized Date/Time: 11/03/20 14:32:13 Pt. Name: NAS ROD Gracie Parrish/Sex: 1975 Male Med Rec #: [id number] Physician: Joseph Stephen MD Financial #: [id number] Pt. Type: P Room/Bed: / Admit/Disch: 11/03/20 14:23:43 - Institution: Case Times Holding FTPM Pre-Care Text: Verifies consent for planned procedure, identifies individual values and wishes concerning care, includes family members in perioperative teaching Secures patient's records' belongings, and valuables, maintains patient's dignity and privacy, and maintains patient confidentiality Entry 1 In Holding 11/03/20 14:26:00 Outcomes Met? Yes Last Modified By: Allyssa Murphy RN 11/03/20 14:30:46 Post-Care Text: The patient participates in decisions affecting his or her perioperative plan of care The patient's right to privacy is maintained Surgery Checklist FTPM Entry 1 Patient Birthday, ID Band Procedure History and Physical, Identification: Check, Patient Verification: Surgical Consent, With Participation Patient NPO after Midnight: n/a Personal Items: Jewelry Personal Items ONe ring / one ear ring Complaints of Pain: Yes Comment: / cell phone in pocket Pain Comment: 08/26 in lower back Operative Site Yes right side Marking: Marked By: Dr. Betancourt Location: Right side lower back Availability Equipment, X-Ray Verified: Does Patient Smoke No Patient states Yes Comment - Adult Bhargavi postop adult Supervision supervision available Case Cancelled in No Holding Area see comments below for reason Last Modified By: Allyssa Murphy RN 11/03/20 14:32:11 Finalized By: Allyssa Murphy RN Document Signatures Signed By: Allyssa Murphy RN 11/03/20 14:32 Normal [facility] Operative Reporton Operative Report Patient: NAS ROD Age: 45 years Sex: Male : 1975 Associated Diagnoses: None Author: Joseph Stephen MD Procedure Procedure: Lumbar Facet Medial Branch Blocks to the Right L4/5 and L5/S1 Facet Joints with Fluoroscopic Guidance Diagnosis: Lumbar Spondylosis without myelopathy Anesthesia: Local Steroid was used because of the edema noted on imaging. The patient was identified in the pre-op area. The procedure, including risks benefits and alternatives was discussed with the patient. The patient agreed to proceed. Informed consent was obtained and the site(s) marked. The patient was brought to the procedure room and placed in the prone position with padding under the abdomen to reduce lumbar lordosis. Time out was performed. The back was prepped and draped in sterile fashion. Skin and subcutaneous tissues were anesthetized with 6 mL of Lidocaine 2% through a 25G needle. 22G spinal needles were then advanced under fluoroscopic guidance to locations of the medial branch (dorsal ramus) nerves to the right L4/5 and L5/S1 facet joints. 0.1 mL of Isovue contrast was injected at each level demonstrating appropriate spread without vascular uptake. After confirmation of negative aspiration, 0.5mL of 0.5% bupivacaine and 13mg of methylprednisolone were injected at each level. The needles were removed and bandages applied. The patient was brought to the recovery area in stable condition and then monitored for an appropriate period of time. The patient was discharged home in good condition with post-procedure instructions. No apparent complications. Epidural injection procedure Physical Exam: vital signs Vital Signs 11/03/2020 14:40 EDT Heart Rate Monitored 69 bpm Respiratory Rate 16 br/min Systolic Blood Pressure 124 mmHg Diastolic Blood Pressure 67 mmHg SpO2 99 % 11/03/2020 14:32 EDT Temperature Oral 36.6 DegC Heart Rate Monitored 67 bpm Respiratory Rate 12 br/min LOW Systolic Blood Pressure 114 mmHg Diastolic Blood Pressure 76 mmHg Mean Arterial Pressure, Monitered 89 mmHg SpO2 97 % . [facility] Comment on above: Result Comment: Elec tronically Signed By: Zafar ADAME, Joseph Rodriguez\.br\Date and Time Signed: 11/03/20 14:49 EDT Pharmacy Officeon 11-03-2020 Pharmacy Office [id number]#1. 00CD:[address] [facility] Insurance Correspondence Off iceon 10-23-2020 Insurance Correspondence Office [id number]#3. 00CD:[address] [facility] Patient Correspondenceon Patient Correspondence [id number]#1 .00CD:[address] [facility] Coding Summary.on 10-15-2020 Coding Summary. CD:[id number] Gh 0bWw+PGhlYWQ+WM0IXXMdG 75hfPEjfI9KY7xTIK0ADUJ HCMFPVH7SOJ9hySH3DMmaD 2VybiAv BvrntKQkOH90PXn9KXD1yB ssTPusxH6piAUzG2v1PeKv DR79nZ75AQhtOHSwUtB3Vz ZpbjsgbWFy I1knWfIrmSOyEnu+PHRhYm xlIHdpZHRoPScxMDAlJyBz oVaiDH6bTx9vVYDwASWcmA xhcHNlOiBj m6yqZSNxOIocTK1guSjwP9 JksBD3NIXrc6u2Nl18jBN+ KALwQOC6gPoiDEjsl649Vn Ujo4fnZLO9 dVRmBGmgFSK0B20tr1T8GU UuYWUlUXI1lJT7dZ2wnPai rmdcW2AbpISwLdY1AFU0zN SqzJ5axWwx mxapvI9eZhh+S98DNA3KIV BOJV2ZHwz5K8MnVseukNR+ CO62IEPrIC20oPYgwBYyd3 wvfYz3PfIq WTXdZMQ7fPebWItwm4GjIC YdS82daGEor2Q6XQEpgRub kVDbAmEmhIU1gG6kEJbwjh hta3vbtadv Qnhgy1fowu29uN99T55vCA rkZOWuANP4SGDjRQNdeYaz ry4bfQ0jBl8+QYypg5axe8 cxmAf3VcAg UGIpkpXstHhmOUR4s6DqEn 42H1YsgAsfl7PhLyr5yh02 vSRtt7Z1yJA8EFieOFNhuD 5uJMypRkQ4 RBEyFsKaxD48sYZqMLvmUp 8xzFndpFcfQD6vKQOjjpzs ROOetS3bIFUqoWEenGpjOQ 4wNTBpbjtm t579TdWwPWO1WYBrmUCkZ7 OyzY3nMuRdYSEqMGZoK7Mu jKQhYWyeY764OHphVtS0HX IkpkKvQ4Xt LUXdvLwyJjU1y2E5Nt0Be9 QrjkocZAP8CKtiZYQ8ErX3 WwHmQtF9V7UeTdj5RJAnuQ gnHY9xD4Yd NKCroogfzhwnxKP5JSKiSF EiwG56mWIbAPthVe9vh5D8 c113YLIhSQTjcF99Jj0arC ogMTBwdCBU zV5vejwlc4zfbnraWrPgYP KePLr5LMz2KFCnmUozPtBc YYN2QfU0VWM6mINzwI3fqB gimdttjY2x Oyc+S46hvD5zVCB0TIO2fr luXOQkkyDxWB02EF22L6Fx PjwvdGFibGU+PGRpdiBzdH cnVY7kAxOm c8aka0PdXPnlO9DaCAKvDB stBqi0JOZpKUS5rZY6lT7s OWFrFObhb0Y3oWI4K8Jnjc Rbqn4rp9mc DSCwPXgiT21luOEkv7S9ZL WxuBC1DTCmnBrjNnJxeC87 Oyc+AOXytArvm9OjUjide8 tft7nmlGd0 MrGzXDGkwvHktZroMZE0p7 LhFf03F42pCFurXKFyUTQc JZUnFWAgfXabph1hoW6rZw 8+PGNvbCB3 aKJ2tW2rHMRcFkM4FVaeO4 26DeRrcINvXukzf8tpc7dn uEk0HxJkDGKqqhKnaEovZT K6m3YnZd25 U59zYZwzEZKgGANsHTOkBV WktBquyp5htI5aCi4+PC9j f3dbzo36nT80tGC+PHRkIH X3iTowFOjp YCOhmV3bVKoxNwJ8NUTrQy YyeC93cEOfYQzrEh2cgPcv cZpmLV2hKPYmckzjd876Yx Ihz0vlDLSd zFUtDQqfHEA1K78np8K0ZI QjXINbOZW8cLP8kF0nkReu bjogbGVmdDsgdmVydGljYW anRKvvD533 IHRvcDsnPlBhdGllbnQgTm UhSKf7Z7JsRmn2ZTMndAwd WL1aoHKcGOotXi0hbTbklG lvKQ9sHRRe gujza747LeLzd6agIQYiyW AvZDzyLXU4E48mt7U8LVIv JXZvGCK5vNF9jI7qgVdmaz ogbGVmdDsg beWidLkzQKlwZTecC123KJ RvcDsnPkJpcnRoIERhdGU6 QX07IA24eSTjl8B0vUS4S0 BhZGRpbmct dzrawOT7EVZhLQCryT07Oi 8pvMdkIs7pHEPxTDK0HOBr qOYvG5NriS0aEiHhXBMgQA EgV2CrpGAg GVizA252BPahPzZ9ZSEcvu JlO3RlNWLddMloInW2e4L1 Uw8CU1E2VS58SC60tKGrl5 Y4jZQ1A8Yz GXRtgrdrnuxsqEH2WSEeAZ GxkU90Ed0bpCqpLb1oFCMm RBC4KZEhdAJiS7GovT3bRb AjMDAwMDAw N9TxyLIdGRkcC853PFhoJg H9TWWiqqXlU3KyXFTjoPwd KcU7a9N6Mu9UOFr1IW40MT 17tTSwr2X2 mFX5O7IqIEBrpcoatbljcP K2TIZlPBUwnX95My7vbAma Tx2tGKNnWIU6LVDbjVXkF4 AfhI2kNlFz TACcMIGoY4PjpLRvYXtaI6 85SBcyHwV1DLSfduCtQ3Aw GMBweNghXgF6u3U2Eq3WBQ SsED42DLA4 wAD3ZX21ZT98O2CzBlbnbY FibGU+PHRhYmxlIHdpZHRo LXvcTTHuDmMucXhaUR6uEe 9yZGVyLWNv wYqbsLYsYaCci7zeBRLmBQ xcSR6dqYavF3PxjOL8DEXj a5t8Gi89Z45aU9RndWS+PG TyzLW9oOI7 jG6nJdNjYzJ9VAkcA946Do UkuSQwCzobi2xky0auwOg5 IsU2BVYbkfDyiHrrIXF2t2 YyVo19M10q IHdpZHRoPSIxNSUiIHZhbG aoqu6mvH5rQo1+PGNvbCB3 nRG7yK3fHdSnMlF5EUymR0 49InRvcCIv Fqobb6jkf0angVt2YiKlMK QmlmGkdYxfHCO3g0RmQp66 T3GgsCmzw3DlZaq9dp66qV Nps5G0sYP4 X4JaTDGteuqycMVfwLxxFY 0dHDYwnprvNRLziW5hDQXp L5p4WlKdIzZ3WZvzZ0Ogku J5BMEmpFKj SAoeALT1V83qk1B5PQFqUF FmLAI8jMY8lC4jdCnydoel bGVmdDsgdmVydGljYWwtYW tyB138QFQv jAaeQKEvyW6pALKeyCZobH haSL8tFGTviyqcMcTZB3Km EHkWH58ZXMI9B0TjQig6MW ZzqHppPH0z zOBlNKzdAk8qnGnssEpmIT 5rBKXohxalICMjqN2sTWDh bXUiiGmsYW4vEXUlhobqk8 41OlCdRXV2 TAVgxXYfS2ZnfR2xCqIvMW EcTFCjN0VzxVXfLNodG419 BVxxHrA0FOOqcjLaQ1CbYH FsaWduOiB0 y1K1Za8bFV5lSs5sHTp7HB 90LI72aBBot9S7nEQ4G4Gc HLGhdtxwoxwbnJA4ZHOhLQ WzoR89tTBz IJqkJs6kz3B9f383AMAtRL SafP98Pl5vyCpkGFAorDBJ lN1kjtnts0dloywgKcQtOE DrQNq8EXz5 YOQfxXcdNjSdOMS8VpL5VF N4jPKhlO5jsDtsyiqdiT2b Oyc+WYMbJGXowiR3L1TgFx e8QHIfhSux TS3bdPXyMYjzTh9tcEqjnF frZB4gQITfnuvyJBRcwU2n GKYfvCWosPtaEY1oXIBxgt ufi161VfXw HDV6QFFvbBDfD4TlkH1fNr VuDRPaSGZaV9RorGIcBJzm R680NAaaFzO8UBMywmDaE7 FsLWFsaWdu DcT5x0L1Vr1HDPtzJB02KG 47oMNiy4N0lQK0H6ToPHOs diruqlktkAU9HUUyGCEbnK 47cGFkZGlu Zd5fq5P8b032GNWoVTIjbR 95Zw4lmZjtEJOvgMUSqS7v ipqeo1ylxpghMzGyBYTgIE f8QKy2IMPp lQfiOkJcGJG2WiT5MSB6eW KmyC9jzXidwzufvG0lUhx+ GHOyxxEREV2dI9QnDL66DW 18IH43O3Hh PjwvdGFibGU+PHRhYmxlIH dpZHRoPScxMDAlJyBzdHls WI2tHx4kJHWlHMJsjSmnpR MqBjWoa0fv IYTgKMfmFB1brPylJ2UlpX T6YXWma0d5Jx34C62jC7Cq dXA+IDHbsCJ1nZW6pV4qFw ZzNlJ5TLol V228JcZokUUjIvlor2vms6 wzaFb0EeLbXEIbefXspGbe MTX6g9BvEa48K38pDYbgAE RoPSIyMCUi AVDbyWibce5lqW6uLy9+PG CpuXQ3sAJ9bD8xJoQlBrF9 IRoqL169CfLdcRZwTeqeK3 5sG1OrqBA+ YDDbUfn8UVBhrWodRJ1gbP OlPCoyCn2iGYV8MnLvPaDg IOjdL8QrNLJbyktnscmbjC Y2LARwXHVz eG39Ue7klXqeLc9qQWBkOE M4CECpqVGaS0CeoU9iCzFm ORHcOPIdS9DukFUfMGimB2 04XEtrEiY8 CBWgizKeO6EsPVZgsMgdUl A6z7D4Vm3EkPznpNLsQG5g CjHcJSq9I6XyFvf2YNLwsN yqHK8rbKTy OZglMq4ueXnzkQglCM4zVY Ctxqmuh314ViKup0srONJg uBAoZPnhYFY0L07be9E3ZN MwMDAwMDA7 jIG8fV6arDqqannzgLJfkV yvkrKozDiyBShnMOsyE810 QYVwpNdqErUTItc0A9DgSp u6CZQccRka YX3vfRFxKOobAu1dmFebiH hxQL4xIWSdrziyk556PnVe p7ujKQGlaVQnIPfrRJP5K1 6kn3K8KISg SYFqGQR5jAV1yK5azJraao ogbGVmdDsgdmVydGljYWwt GEnsY193IPIbeTehId3XKn a9Z2YkRjf4 DMMygMopHQ3yaGQuDQwwPm 9kcHrfzGnrGU5wUCOzmzkc c798FkMza6mfFHErpVDtVV xjZZJ8H31v c6Y5JIWxGOHdPPQ8qSF8tR 1hbGlnbjogbGVmdDsgdmVy sOetSLrcFXdhE781OOWciS snPlBheWVy OjwvdGQ+WO52de27A7QqKv koFba5YOAaJRC3gRL0hI2w KEVdSAqla5C6fAY8D4Xfai Ehax3tq1wo YXBz (more content not included)... Normal [facility] Consultation Noteon 10-14-19 Consultation Note HOSPITAL REGULATIONS : ALL Positive Important Negative Findings Shall Be Recorded. Date of 10/05/2020 Consultation: Attending Gavin Garcia M.D. Physician: Consulting Joseph Stephen M.D. Physician: CHIEF COMPLAINT: Right buttock pain. HISTORY: A 45 year old gentleman with the above noted pain since 2019. No inciting injury or trauma. The pain initially started going down his right leg but it has since stopped. He has had two full sessions of physical therapy both of which were of some benefit. He was treated with high dose Ibuprofen for over six months as well as Tramadol. He has since been switched to Cymbalta 30 mg daily. He finds the Cymbalta to be of some benefit. He rates his pain between a 3-7/10 on the visual analog scale. Pain is worse when he first stands from a seated position after sitting for awhile. Denies loss of bowel or bladder function, fevers, chills, stumbling or falling. The pain can wake him from sleep at night. The pain does impact quality of life and activities of daily living. The patient was referred here to discuss further treatment options. He has seen Dr. Howe. The patient reports having an x-ray at [place] and a magnetic resonance imaging at [place]. Neither of those studies are available for review today. Past medical history, family history, surgical history, social history, medication list, allergies and complete review of systems were obtained and reviewed. Pertinent findings are noted in the history of present illness. PHYSICAL EXAMINATION: Constitutional: No acute distress. Well nourished, well developed. Eyes: No exudate or deformity. Extraocular muscles are intact. Ears, nose, mouth and throat: Ears and nose are without deformity. Patient is wearing a mask. Neck: No noticeable masses, tracheal deviation or asymmetry. No thyromegaly on inspection. Respiratory: No gasping or shortness of breath. No accessory muscle use. Cardiovascular: Pulses in extremities are palpable. No noticeable lower extremity edema or varicosities. Gastrointestinal: Obese. Non-tender to palpation. Lymphatics: No supraclavicular or cervical lymphadenopathy. Skin: Inspection of the skin reveals no rashes, lesions or ulcers. Normal skin turgor. Psychiatric: Oriented to time, place and person. Normal mood and affect. Musculoskeletal: Patient arises easily from a seated position. There is distinct tenderness to palpation over the right sacroiliac joint to palpation with one finger, positive FABERs, Gaenslen's, thigh thrust maneuver and distraction test over the right sacroiliac joint. There is also pain with lumbar facet loading on the right-hand side. Negative on the left. There is minimal pain with flexion of the lumbar spine. Neurologic: 5/5 strength throughout bilateral lower extremities. Able to heel and toe walk without difficulty. IMAGING: As above, none available to review today. ASSESSMENT/PLAN: A 45 year old gentleman with severe persistent right low back pain consistent with either sacroiliitis or facet mediated pain. The pain has not responded to extensive physical therapy and high dose NSAID use. We discussed the option of a right sacroiliac joint injection for diagnostic and hopefully therapeutic purposes. A detailed description of the procedure including risks, benefits and alternatives were reviewed with the patient. He wishes to proceed. Follow up two weeks after the injection to assess response. If the patient does not experience any significant short or fpc relief with the diagnostic injection consider right L5-S1 facet joint injection. I would like to review his previous magnetic resonance imaging and x-ray results as well as his previous electromyogram study results, however, he has no radicular symptoms at this time. Therefore, I do not expect to see any areas of neural compromise on magnetic resonance imaging. The patient agrees with plan of care. ADDENDUM: The patient's magnetic resonance imaging report did come back. It did show diffuse posterior dictation protrusion mildly effacing the ventral roots at L4-5. More interestingly, there was prominent bone marrow edema at the right pedicle of L5 and right L4-5 facet joints which could be sequelae of degenerative or traumatic changes. I suggested that we switch our procedure to a right L4-5 and L5-S1 facet joint injection with steroid. Considering the edema noted on magnetic resonance imaging I believe this would be both diagnostic and hopefully therapeutic to the patient with regards to his pain. The patient wishes to proceed. Joseph Stephen M.D. lkr Dictated: 10/05/2020 #[id number] Typed: 10/07/2020 #[id number] cc: Michelle Banegas M.D. [facility] Comment on above: Result Comment: Elec tronically Signed By: Zafar ADAME, Joseph Rodriguez\.br\Date and Time Signed: 10/13/20 11:46 EDT Outside Records Officeon Outside Records Office [id number]#1. 00CD:[address] [facility] Release of Records Officeon 10-08-2020 Release of Records Office [id number]#1. 00CD:[address] [facility] HIPAA Forms Officeon 021 HIPAA Forms Office [id number]#1. 00CD:[address] [facility] Legal Correspondence Officeo n 10-06-2020 Legal Correspondence Office [id number]#1. 00CD:[address] [facility] Legal Correspondence Office [id number]#1. 00CD:[address] [facility] Patient Correspondenceon Patient Correspondence [id number]#1. 00CD:[address] [facility] Patient Correspondence [id number]#1. 00CD:[address] [facility] Patient Correspondence [id number]#1. 00CD:[address] [facility] Patient Correspondence [id number]#1. 00CD:[address] [facility] Patient History Officeon Patient History Office [id number]#1. 00CD:127 Normal [facility] Radiology Outside Office Atmospheric Drier Tender yon 10-06-2020 Radiology Outside Office Copy [id number]#1. 00CD:[address] [facility] Radiology Outside Office Copy [id number]#1. 00CD:127 Normal [facility] Consent for Treatmenton 09-17 Consent for Treatment [id number]#1. 00CD:[address] [facility] Office/Clinic Note-Physician on 10-05-2020 Office/Clinic Note-Physician [id number]#1. 00CD:[address] [facility] Release of Records Officeon 10-05-2020 Release of Records Office [id number]#1. 00CD:[address] [facility] Outside Records Officeon Outside Records Office [id number]#1. 00CD:[address] [facility] Referrals Officeon Referrals Office [id number]#1. 00CD:[address] [facility] Vital Signs Date Time Vital Sign Value Performing Clinician Faci lity 07-02-2024 14:56-0500 Body height 170.2 cm Mervin Santiago MD Work Phone: [facility] 07-02-2024 14:56-0500 Body mass index (BMI) [Ratio] 48.08 kg/m2 Mervin Santiago MD Work Phone: [facility] 07-02-2024 14:56-0500 Body temperature 97.81 [degF] Mervin Santiago MD Work Phone: [facility] 07-02-2024 14:56-0500 Body weight 139.25 kg Mervin Santiago MD Work Phone: [facility] 07-02-2024 14:56-0500 Diastolic blood pressure 80 mm[Hg] Mervin Santiago MD Work Phone: [facility] 07-02-2024 14:56-0500 Heart rate 85 /min Mervin Santiago MD Work Phone: [facility] 07-02-2024 14:56-0500 Respiratory rate 16 /min Mervin Santiago MD Work Phone: [facility] 07-02-2024 14:56-0500 SaO2% (BldA) [Mass fraction] 96 % Mervin Santiago MD Work Phone: [facility] 07-02-2024 14:56-0500 Systolic blood pressure 136 mm[Hg] Mervin Santiago MD Work Phone: [facility] Healthcare Encounters Encounter Date Encounter Type Care Provider Facility Start: 07-06-2024 End: 07-06-2024 Clinisync Result Encounter Mervin Santiago MD Work Phone: [facility] External Department Unsolicited Start: 07-06-2024 End: 07-06-2024 Clinisync Result Encounter Mervin Santiago MD Work Phone: [facility] External Department Unsolicited Start: 07-02-2024 End: 07-02-2024 Periodic preventive med est patient 40-64yrs Mervin Santiago MD Work Phone: [facility] Comment on above: Annual physical exam (Primary Dx); Varicose veins of left lower extremity with pain; Edema of left lower leg; Class 3 severe obesity due to excess calories with serious comorbidity and body mass index (BMI) of 45.0 to 49.9 in adult ([facility]) Start: 07-02-2024 End: 07-02-2024 ambulatory MERVIN SANTIAGO Not Available Start: 07-02-2024 End: 07-02-2024 Bamboo flowsheet Mervin Santiago MD Work Phone: [facility] Start: 07-02-2024 End: 07-02-2024 Bamboo flowsheet Mervin Santiago MD Work Phone: [facility] Start: 07-02-2024 End: 07-02-2024 Patient encounter procedure Mervin Santiago MD Work Phone: [facility] Start: 02-09-2022 End: 02-09-[address] MERVIN SANTIAGO Facility:[facility] Start: 09-04-2021 End: 09-05-[address] MERVIN SANTIAGO Facility:[facility] Start: 08-11-2021 End: 08-12-[address] MERVIN SANTIAGO Facility:[facility] Procedures Date Procedure Procedure Detail Performing Clinician Start: 07-06-2024 ALL CBC WITH AUTO DIFF Mervin Santiago MD Work Phone: Plan of Treatment Date Care Activity Detail Author Start: 12-05-2025 Screening for malign ant neoplasm of colon [facility] Start: 07-02-2024 End: 07-02-2025 Basic metabolic 1998 panel - Serum or Plasma Basic metabolic panel Lab Routine Annual physical exam Expected: 07/02/2024 (Approximate), Expires: 07/02/2025 [facility] Comment on above: Expected: 07/02/2024 (Approximate), Expires: 07/02/2025 Start: 07-02-2024 End: 07-02-2025 CBC W Auto Differential panel - Blood CBC and differential Lab Routine Annual physical exam Expected: 07/02/2024 (Approximate), Expires: 07/02/2025 [facility] Comment on above: Expected: 07/02/2024 (Approximate), Expires: 07/02/2025 Start: 07-02-2024 End: 07-02-2025 Hemoglobin A1c/Hemoglobin.total in Blood Hemoglobin A1c Lab Routine Annual physical exam Expected: 07/02/2024 (Approximate), Expires: 07/02/2025 [facility] Work Phone: Comment on above: Expected: 07/02/2024 (Approximate), Expires: 07/02/2025 Start: 07-02-2024 End: 07-02-2025 Hepatic function 2000 panel - Serum or Plasma Hepatic function panel Lab Routine Annual physical exam Expected: 07/02/2024 (Approximate), Expires: 07/02/2025 [facility] Comment on above: Expected: 07/02/2024 (Approximate), Expires: 07/02/2025 Start: 07-02-2024 End: 07-02-2025 Lipid 1996 panel - Serum or Plasma Lipid panel Lab Routine Annual physical exam Expected: 07/02/2024 (Approximate), Expires: 07/02/2025 [facility] Comment on above: Expected: 07/02/2024 (Approximate), Expires: 07/02/2025 Start: 07-02-2024 End: 07-02-2025 Prostate specific Ag [Mass/volume] in Serum or Plasma PSA Lab Routine Annual physical exam Expected: 07/02/2024 (Approximate), Expires: 07/02/2025 [facility] Comment on above: Expected: 07/02/2024 (Approximate), Expires: 07/02/2025 Start: 07-02-2024 End: 07-02-2025 Thyrotropin [Units/volume] in Serum or Plasma TSH Lab Routine Annual physical exam Expected: 07/02/2024 (Approximate), Expires: 07/02/2025 [facility] Comment on above: Expected: 07/02/2024 (Approximate), Expires: 07/02/2025 Start: 02-18-2024 Influenza vaccination Influenza Vacc ine (#1) [facility] Start: 1976 Screening for malign ant neoplasm of colon 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 Yes [facility] Are you now , , , , never or living with a partner? [facility] How often to you hav e a drink containing alcohol? 2-4 times a month [facility] How many standard dr inks containing alcohol do you have on a typical day? 1 or 2 [facility] How often do you hav e 6 or more drinks on 1 occasion? Less than monthly [facility] How hard is it for y ou to pay for the very basics like food, housing, medical care, and heating Somewhat hard [facility] Do you feel stress - tense, restless, nervous, or anxious, or unable to sleep at night because your mind is troubled all the time - these days [OSQ] Only a little [facility] (I/We) worried wheth er (my/our) food would run out before (I/we) got money to buy more. Never true [facility] In the past 12 month s, was there a time when you were not able to pay the mortgage or rent on time? No [facility] Start: 1975 Sex assigned at Not on file [facility] Start: 07-02-2024 Tobacco smoking status NHIS Never sm oked tobacco [facility] Start: 07-02-2024 Tobacco use and exposure Forme r smokeless tobacco user [facility] History of Present illness Narrative 07-02-2024 Mervin Santiago MD - 07/02/2024 4:13 PM Jeremiah Santiago MD - 07/02/2024 4:13 PM Jeremiah Santiago MD - 07/02/2024 4:13 PM Jeremiah Santiago MD - 07/02/2024 4:13 PM EST Note Date & Type Note Facility 07-02-2024 History of Presen t illness Narrative Associated Problem(s): Varicose veins of left lower extremity with pain Painful varicose veins and refer to [facility]. Associated Problem(s): Edema of left lower leg Worsening edema and start lasix PRN. Try OTC compression. Associated Problem(s): Class 3 severe obesity due to excess calories with serious comorbidity and body mass index (BMI) of 45.0 to 49.9 in adult (CMS/HCC) Weight loss indicated. Associated Problem(s): Annual physical exam Due for labs. Discussed proper diet and regular aerobic exercise. Need aerobic exercise 5-6 days a week for 30 minutes at a time. Smaller portions and limit total calories. Cologuard normal November 2022. Tetanus every 10 years. Advised not to smoke. Images from the original note were not included. Subjective Patient ID: Nas Bowman Case is a 49 y.o. male who presents for Leg Swelling (Left leg swelling). Presents for annual physical. Weight up 8 pounds over the past year. Active at work but no regular exercise or activity. Tries to watch diet and eat healthy. Increased fruits and vegetables. Smaller portions and limits snacking. Tries to limit total daily calories. Due for labs. C/o swelling and pain in left leg for months. Swelling from foot to thigh. Notice veins bulging and palpable lumps in veins. Stands at work and typically works 50-60 hours a week. Edema worse if on feet a lot and at end of day. Slightly better in am. Minimal swelling on right. Review of Systems Constitutional: Negative for fatigue. Respiratory: Negative for cough, shortness of breath and wheezing. Cardiovascular: Negative for chest pain and palpitations. Gastrointestinal: Negative for abdominal pain, diarrhea, nausea and vomiting. Genitourinary: Negative for dysuria. Objective Physical Exam Constitutional: General: He is not in acute distress. Appearance: Normal appearance. HENT: Head: Normocephalic. Right Ear: Tympanic membrane and ear canal normal. Left Ear: Tympanic membrane and ear canal normal. Eyes: Extraocular Movements: Extraocular movements intact. Pupils: Pupils are equal, round, and reactive to light. Cardiovascular: Rate and Rhythm: Normal rate and regular rhythm. Heart sounds: No murmur heard. No friction rub. No gallop. Pulmonary: Breath sounds: Normal breath sounds. No wheezing, rhonchi or rales. Abdominal: General: Bowel sounds are normal. There is no distension. Palpations: Abdomen is soft. Tenderness: There is no abdominal tenderness. There is no guarding or rebound. Musculoskeletal: General: Normal range of motion. Left lower leg: No edema. Neurological: General: No focal deficit present. Mental Status: He is alert. Cranial Nerves: No cranial nerve deficit. Deep Tendon Reflexes: Reflexes normal. Assessment/Plan Problem List Items Addressed This Visit Class 3 severe obesity due to excess calories with serious comorbidity and body mass index (BMI) of 45.0 to 49.9 in adult (CMS/HCC) Weight loss indicated. Annual physical exam - Primary Due for labs. Discussed proper diet and regular aerobic exercise. Need aerobic exercise 5-6 days a week for 30 minutes at a time. Smaller portions and limit total calories. Cologuard normal November 2022. Tetanus every 10 years. Advised not to smoke. Relevant Orders Hemoglobin A1c Basic metabolic panel CBC and differential Hepatic function panel Lipid panel PSA TSH Edema of left lower leg Worsening edema and start lasix PRN. Try OTC compression. Relevant Medications furosemide (Lasix) 40 MG tablet Other Relevant Orders Ambulatory referral to Vascular Surgery Varicose veins of left lower extremity with pain Painful varicose veins and refer to Vein and Body. Relevant Orders Ambulatory referral to Vascular Surgery documented in this encounter [facility] History and physical note 11-03-2020 Note Date & Type Note Facility 11-03-2020 Note [id number] [facility] Evaluation note Note Date & Type Note Facility Evaluation note Diagnosis Annual physical exam- Primary Routine general medical examination at a health care facility Varicose veins of left lower extremity with pain Edema of left lower leg Class 3 severe obesity due to excess calories with serious comorbidity and body mass index (BMI) of 45.0 to 49.9 in adult (CMS/HCC) documented in this encounter [facility] Summary Purpose Family History No Family History Records FoundNo Family History Records FoundNo Family History Records Found Advance Directives No Advanced Directives Records FoundNo Advanced Directives Records FoundNo Advanced Directives Records Found Additional Source Comments (unrecognized sect ion and content) No Status Records FoundNo Status Records FoundNo Status Records Found INFORMATION SOURCE (unrecogn ized section and content) DATE CREATED AUTHOR 12/16/2020 [facility] DATE CREATED AUTHOR AUTHOR'S ORGANIZ ATION [facility]20[facility] DATE CREATED AUTHOR AUTHOR'S ORGANIZ ATION 07/05/2024 [facility] dical Specialists EPIC Care Teams (unrecognized sec tion and content) Dial Lathe Operator Relationship Specialty Start Date End Date Mervin Santiago MD [address] [place] [address] PCP - General Family Medicine 06/04/24 Dial Lathe Operator Relationship Specialty Start Date End Date Mervin Santiago MD [address] [place] [address] PCP - General Family Medicine 06/04/24 Dial Lathe Operator Relationship Specialty Start Date End Date Mervin Santiago MD [address] [place] [id number] PCP - General Family Medicine 06/04/24 Reason for Visit (unrecogniz ed section and content) Reason Comments Leg Swelling Left leg swelling FOR RECORDS PERTAINING TO PATIENTS WHO ARE OR HAVE BEEN ENROLLED IN A CHEMICAL DEPENDENCY/SUBSTANCEABUSE PROGRAM, SOME INFORMATION MAY BE OMITTED. This clinical summary was aggregated from multiple sources. Caution should be exercised in using it in the provision of clinical care. This summary normalizes information from multiple sources, and as a consequence, information in this document may materially change the coding, format and clinical context of patient data. In addition, data may be omitted in some cases. CLINICAL DECISIONS SHOULD BE BASED ON THE PRIMARY CLINICAL RECORDS. [employer] [facility]. provides no warranty or guarantee of the accuracy or completeness of information in this document.
== END 2024-07-15 11:24 | disposition home or self-care (01) ==
LOC: VC 08:00
PROVIDERS: PCP Family Medicine; Visit Provider Radiology Diagnostic Radiology
DX: I83.813 Varicose veins of bilateral lower extremities with pain (principal)
CPT/HCPCS: 93970; G0463